=== PATIENT | male | born 1985 | race Caucasian/White ===

== ENCOUNTER 2016-11-07 20:46 | Observation (INO) | payer MEDICAID ==
[~2016-11-07] VITALS: Ht 180.3 cm; Wt 82.0 kg
[2016-11-07 21:42] LABS: ASPARTATE AMINO TRANSFERASE 26 U/L (15-37); BLOOD UREA NITROGEN 7 mg/dL (7-18)
[2016-11-07 21:59] LABS: ACETAMINOPHEN < 2 mcg/mL (10-30)
[2016-11-07] MEDS ORDERED: GABA100C PO (22:05)
[2016-11-07] MEDS ORDERED: HYDR25CA PO (22:05)
[2016-11-07] MEDS ORDERED: OLAN2.5T3 PO (22:05)
[2016-11-07] MEDS ORDERED: BUPR-173 PO (22:05)
[2016-11-07] MEDS ORDERED: DIAZ2TAB PO (22:05)
[2016-11-08 00:24] LABS: DAU SCREEN DISCLAIMER
[2016-11-08] MEDS ORDERED: POTASSIUM CHLORIDE 20 MEQ TAB.ER.PRT PO ONE (00:30)
[2016-11-08] MEDS ORDERED: DOCUSATE 100 MG CAPSULE PO PRN (00:30)
[2016-11-08] MEDS ORDERED: POLYETHYLENE GLYCOL 17 GM PACKET PO PRN (00:30)
[2016-11-08] MEDS ORDERED: BISACODYL 10 MG SUPP PR PRN (00:30)
[2016-11-08 00:50] VITALS: BP 151/70
[2016-11-08 01:08] LABS: HIV 1&2 ANTIBODY SCREEN Nonreactive (Nonreactive); HIV-1 p24 ANTIGEN Nonreactive (Nonreactive)
[2016-11-08 07:51] VITALS: BP 89/58
[2016-11-08 10:49] LABS: HEPATITIS C VIRUS ANTIBODY Nonreactive (Nonreactive)
[2016-11-08] MEDS: hydrOXyzine 50MG TABLET PO SCH ×2 (11:28→20:58)
[2016-11-08] MEDS: BUPROPION SR 150 MG TABLET PO SCH (13:00)
[2016-11-08 19:54] VITALS: BP 100/66
[2016-11-08] MEDS: OLANZAPINE 2.5 MG TABLET PO SCH (20:58)
[2016-11-09 06:24] LABS: BLOOD UREA NITROGEN 15 mg/dL (7-18)
[2016-11-09 07:56] VITALS: BP 132/79
[2016-11-09] MEDS: hydrOXyzine 50MG TABLET PO SCH ×2 (09:00→21:13)
[2016-11-09] MEDS: BUPROPION SR 150 MG TABLET PO SCH (09:18)
[2016-11-09 19:37] VITALS: BP 113/68
[2016-11-09] MEDS: ACETAMINOPHEN 325 MG TABLET PO PRN (21:12)
[2016-11-09] MEDS: OLANZAPINE 2.5 MG TABLET PO SCH (21:13)
[2016-11-10 08:00] VITALS: BP 121/75
[2016-11-10] MEDS: BUPROPION SR 150 MG TABLET PO SCH (09:17)
[2016-11-10] MEDS: GABAPENTIN 100 MG CAPSULE PO SCH ×3 (09:18→22:04)
[2016-11-10] MEDS: DIAZEPAM 2 MG TABLET PO PRN ×3 (09:18→22:42)
[2016-11-10] MEDS: hydrOXyzine 50MG TABLET PO SCH ×2 (09:18→22:04)
[2016-11-10 20:04] VITALS: BP 115/72
[2016-11-10] MEDS: OLANZAPINE 2.5 MG TABLET PO SCH (22:04)
[2016-11-11 08:15] VITALS: BP 109/74
[2016-11-11] MEDS: hydrOXyzine 50MG TABLET PO SCH ×2 (08:54→21:35)
[2016-11-11] MEDS: GABAPENTIN 100 MG CAPSULE PO SCH ×3 (08:55→21:35)
[2016-11-11] MEDS: BUPROPION SR 150 MG TABLET PO SCH (08:55)
[2016-11-11] MEDS: ACETAMINOPHEN 325 MG TABLET PO PRN ×2 (09:58→17:51)
[2016-11-11] MEDS: DIAZEPAM 2 MG TABLET PO PRN ×2 (09:58→17:52)
[2016-11-11 19:32] VITALS: BP 109/72
[2016-11-11] MEDS: OLANZAPINE 2.5 MG TABLET PO SCH (21:35)
[2016-11-11] MEDS: BACITRACIN OINT 500U/GM, 15 GM TP SCH (21:35)
[2016-11-12 07:26] VITALS: BP 99/66
[2016-11-12] MEDS: CEPHALEXIN 500 MG CAPSULE PO SCH ×3 (07:30→20:49)
[2016-11-12] MEDS: BUPROPION SR 150 MG TABLET PO SCH (08:48)
[2016-11-12] MEDS: SULFAMETH./TRIMETHOPRIM DS 800MG/160MG TABLET PO SCH ×2 (08:48→20:49)
[2016-11-12] MEDS: GABAPENTIN 100 MG CAPSULE PO SCH ×3 (08:48→20:49)
[2016-11-12] MEDS: BACITRACIN OINT 500U/GM, 15 GM TP SCH ×3 (08:48→20:50)
[2016-11-12] MEDS: hydrOXyzine 50MG TABLET PO SCH ×2 (08:48→20:50)
[2016-11-12] MEDS ORDERED: SULF1TAB3 PO (08:54)
[2016-11-12] MEDS ORDERED: CEPH-376 PO (08:54)
[2016-11-12] MEDS: DIAZEPAM 2 MG TABLET PO PRN ×3 (09:58→21:01)
[2016-11-12 19:50] VITALS: BP 127/74
[2016-11-12] MEDS: OLANZAPINE 2.5 MG TABLET PO SCH (20:49)
[2016-11-13] MEDS: CEPHALEXIN 500 MG CAPSULE PO SCH ×4 (01:17→19:59)
[2016-11-13 07:30] VITALS: BP 91/48
[2016-11-13] MEDS: hydrOXyzine 50MG TABLET PO SCH ×2 (08:36→20:05)
[2016-11-13] MEDS: BACITRACIN OINT 500U/GM, 15 GM TP SCH ×3 (08:37→20:01)
[2016-11-13] MEDS: SULFAMETH./TRIMETHOPRIM DS 800MG/160MG TABLET PO SCH ×2 (08:37→19:59)
[2016-11-13] MEDS: GABAPENTIN 100 MG CAPSULE PO SCH ×3 (08:37→19:59)
[2016-11-13] MEDS: BUPROPION SR 150 MG TABLET PO SCH (08:37)
[2016-11-13] MEDS: DIAZEPAM 2 MG TABLET PO PRN (15:32)
[2016-11-13 19:38] VITALS: BP 117/74
[2016-11-13] MEDS: OLANZAPINE 2.5 MG TABLET PO SCH (19:59)
== END 2016-11-13 23:35 ==
LOC: ED 23:59 → 3E 11-08 00:01
PROVIDERS: ADMIT Internal Medicine; ATTEND Internal Medicine
DX: R45.851 Suicidal ideations (principal); F11.10 Opioid abuse, uncomplicated; E87.6 Hypokalemia; E87.1 Hypo-osmolality and hyponatremia; E05.90 Thyrotoxicosis, unspecified without thyrotoxic crisis or storm; F17.210 Nicotine dependence, cigarettes, uncomplicated; G89.29 Other chronic pain; L03.211 Cellulitis of face; F15.10 Other stimulant abuse, uncomplicated; E03.9 Hypothyroidism, unspecified; F32.9 Major depressive disorder, single episode, unspecified; F41.9 Anxiety disorder, unspecified; Z98.890 Other specified postprocedural states
CPT/HCPCS: 36415; 80048; 80053; 80074; 80307; 80329; 81001; 83735; 84439; 84443; 85025; 86703; 87086; 87899; 99285; G0378; G0435; G0480

== ENCOUNTER 2018-04-10 02:19 | Emergency (ER) | payer MEDICAID ==
[~2018-04-10] VITALS: Ht 180.3 cm; Wt 62.6 kg
[~2018-04-10 02:19] MED LIST: BUPR-173 PO; CEPH-376 PO; DIAZ2TAB PO; GABA100C PO; HYDR25CA PO; OLAN2.5T3 PO; SULF-169 PO
[2018-04-10] MEDS ORDERED: LORazepam 1MG TABLET ONE ×2 (02:50→02:52)
[2018-04-10] MEDS ORDERED: LORazepam 1MG TABLET PO ONE (03:00)
[2018-04-10 07:41] VITALS: BP 102/75
== END 2018-04-10 07:43 | disposition home or self-care (01) ==
LOC: ED 07:30 → MERGE 07:30 → ED 07:43
DX: F41.1 Generalized anxiety disorder (principal); R06.4 Hyperventilation
CPT/HCPCS: 71045; 93005; 99284

== ENCOUNTER 2018-04-10 09:58 | Emergency (ER) | payer MEDICAID ==
[~2018-04-10] VITALS: Ht 180.3 cm; Wt 62.2 kg
[2018-04-10 10:45] LABS: BASOPHILS # (AUTO) 0.05 x10^3/uL (0-0.1); BASOPHILS % (AUTO) 1 % (0-1); EOSINOPHILS # (AUTO) 0.14 x10^3/uL (0-0.4); EOSINOPHILS % (AUTO) 2 % (1-7); LYMPHOCYTES # (AUTO) 1.85 x10^3/uL (1-3.4); LYMPHOCYTES % (AUTO) 28 % (22-44); MD NO; MEAN CORPUSCULAR HEMOGLOBIN 31.2 pg (27.5-34.5); MEAN CORPUSCULAR HGB CONC 33.9 g/dL (33.2-36.2); MEAN CORPUSCULAR VOLUME 92.1 fL (81-97); MEAN PLATELET VOLUME 8.3 fL (7.4-10.4); MONOCYTES # (AUTO) 0.86 x10^3/uL (0.2-0.8); MONOCYTES % (AUTO) 13 % (2-9); NEUTROPHILS # (AUTO) 3.74 x10^3/uL (1.8-6.8); NEUTROPHILS % (AUTO) 56 % (42-75); PLATELET COUNT 326 x10^3/uL (130-400); RED BLOOD COUNT 4.85 x10^6/uL (4.38-5.82); RED CELL DISTRIBUTION WIDTH 13.3 % (9.4-14.8)
[2018-04-10 10:55] LABS: ALANINE AMINOTRANSFERASE 26 U/L (12-78); ALBUMIN 4.2 g/dL (3.4-5.0); ANION GAP 13 mmol/L (5-15); CALCIUM 8.9 mg/dL (8.5-10.1); CHLORIDE 106 mmol/L (98-107); CREATININE 1.16 mg/dL (0.7-1.3)
[2018-04-10 10:57] LABS: ALKALINE PHOSPHATASE 41 U/L (45-117); BILIRUBIN,TOTAL 1.2 mg/dL (0.2-1.0); SALICYLATE LEVEL < 1.7 mg/dL (2.8-20.0); TOTAL PROTEIN 7.8 g/dL (6.4-8.2)
[2018-04-10 10:59] LABS: ACETAMINOPHEN < 2 mcg/mL (10-30)
[2018-04-10 14:46] LABS: AMPHETAMINE SCREEN, URINE Positive (Negative); BARBITURATE SCREEN, URINE Negative (Negative); BENZODIAZEPINE SCREEN, URINE Negative (Negative); CANNABINOID SCREEN, URINE Negative (Negative); COCAINE SCREEN, URINE Negative (Negative); METHADONE SCREEN, URINE Negative (Negative); OPIATE SCREEN, URINE Positive (Negative)
[2018-04-10 15:03] LABS: CULTURE INDICATED? NO; MICROSCOPIC NOT IND
[2018-04-10] MEDS ORDERED: IBUPROFEN 200 MG TABLET ONE (16:38)
[2018-04-10] MEDS ORDERED: LORazepam 1MG TABLET ONE (16:38)
[2018-04-10] MEDS ORDERED: LORazepam 1MG TABLET PO ONE (17:00)
[2018-04-10] MEDS ORDERED: IBUPROFEN 200 MG TABLET PO ONE (17:00)
[2018-04-10 19:34] VITALS: BP 104/68
== END 2018-04-10 20:21 | disposition home or self-care (01) ==
LOC: ED 10:46
DX: F41.1 Generalized anxiety disorder (principal); F19.10 Other psychoactive substance abuse, uncomplicated; F32.9 Major depressive disorder, single episode, unspecified; Z79.899 Other long term (current) drug therapy
CPT/HCPCS: 36415; 80053; 80307; 80329; 81003; 85025; 99284; G0480

== ENCOUNTER 2018-05-03 05:25 | Emergency (ER) | payer MEDICAID ==
[~2018-05-03] VITALS: Ht 177.8 cm; Wt 64.9 kg
[2018-05-03 05:27] VITALS: BP 111/76
[2018-05-03] MEDS ORDERED: KETOROLAC 30 MG/1 ML IM ONE (06:00)
[2018-05-03] MEDS ORDERED: DIAZEPAM 5 MG TABLET PO ONE (06:00)
[2018-05-03] MEDS ORDERED: KETOROLAC 30 MG/1 ML ONE (06:06)
[2018-05-03] MEDS ORDERED: DIAZEPAM 5 MG TABLET ONE (06:07)
== END 2018-05-03 06:19 | disposition home or self-care (01) ==
LOC: ED 05:38
DX: G89.29 Other chronic pain (principal); M54.6 Pain in thoracic spine
CPT/HCPCS: 96372; 99283; J1885

== ENCOUNTER 2018-06-09 08:13 | Emergency (ER) | payer MEDICAID ==
[~2018-06-09] VITALS: Ht 170.2 cm; Wt 66.4 kg
[2018-06-09] MEDS ORDERED: ONDANSETRON 2MG/ML, 2ML IVPush ONE (09:00)
[2018-06-09] MEDS ORDERED: SODIUM CHLORIDE FLUSH 10ML SYR IVF ONE (09:00)
[2018-06-09 09:03] LABS: BASOPHILS # (AUTO) 0.05 x10^3/uL (0-0.1); BASOPHILS % (AUTO) 1 % (0-1); EOSINOPHILS # (AUTO) 0.22 x10^3/uL (0-0.4); EOSINOPHILS % (AUTO) 2 % (1-7); LYMPHOCYTES # (AUTO) 1.16 x10^3/uL (1-3.4); LYMPHOCYTES % (AUTO) 12 % (22-44); MD NO; MEAN CORPUSCULAR HEMOGLOBIN 31.5 pg (27.5-34.5); MEAN CORPUSCULAR HGB CONC 34.1 g/dL (33.2-36.2); MEAN CORPUSCULAR VOLUME 92.3 fL (81-97); MEAN PLATELET VOLUME 8.2 fL (7.4-10.4); MONOCYTES # (AUTO) 0.77 x10^3/uL (0.2-0.8); MONOCYTES % (AUTO) 8 % (2-9); NEUTROPHILS # (AUTO) 7.68 x10^3/uL (1.8-6.8); NEUTROPHILS % (AUTO) 78 % (42-75); PLATELET COUNT 392 x10^3/uL (130-400); RED BLOOD COUNT 5.09 x10^6/uL (4.38-5.82); RED CELL DISTRIBUTION WIDTH 13.1 % (9.4-14.8)
[2018-06-09 09:08] LABS: ALANINE AMINOTRANSFERASE 24 U/L (12-78); ALBUMIN 3.9 g/dL (3.4-5.0); ANION GAP 7 mmol/L (5-15); CALCIUM 8.5 mg/dL (8.5-10.1); CHLORIDE 107 mmol/L (98-107); CREATININE 1.05 mg/dL (0.7-1.3)
[2018-06-09 09:10] LABS: ALKALINE PHOSPHATASE 55 U/L (45-117); BILIRUBIN,TOTAL 0.7 mg/dL (0.2-1.0); TOTAL PROTEIN 7.8 g/dL (6.4-8.2)
[2018-06-09 10:45] LABS: MICROSCOPIC AUTO
[2018-06-09 10:50] LABS: CULTURE INDICATED? YES
[2018-06-09 12:01] VITALS: BP 102/77
== END 2018-06-09 12:29 | disposition home or self-care (01) ==
LOC: ED 12:23
DX: K29.00 Acute gastritis without bleeding (principal); F15.10 Other stimulant abuse, uncomplicated; F12.10 Cannabis abuse, uncomplicated; F41.1 Generalized anxiety disorder; F32.9 Major depressive disorder, single episode, unspecified; Z72.9 Problem related to lifestyle, unspecified
CPT/HCPCS: 36415; 80053; 80307; 81001; 83690; 85025; 87086; 99283

== ENCOUNTER 2018-06-19 06:32 | Emergency (ER) | payer MEDICAID ==
[~2018-06-19] VITALS: Ht 177.8 cm; Wt 66.4 kg
[2018-06-19] MEDS ORDERED: SUBUTEX (07:18)
[2018-06-19 07:58] LABS: BASOPHILS # (AUTO) 0.05 x10^3/uL (0-0.1); BASOPHILS % (AUTO) 1 % (0-1); EOSINOPHILS # (AUTO) 0.43 x10^3/uL (0-0.4); EOSINOPHILS % (AUTO) 7 % (1-7); LYMPHOCYTES # (AUTO) 1.76 x10^3/uL (1-3.4); LYMPHOCYTES % (AUTO) 29 % (22-44); MD NO; MEAN CORPUSCULAR HGB CONC 33.6 g/dL (33.2-36.2); MEAN CORPUSCULAR VOLUME 92.2 fL (81-97); MEAN PLATELET VOLUME 8.4 fL (7.4-10.4); MONOCYTES # (AUTO) 0.76 x10^3/uL (0.2-0.8); MONOCYTES % (AUTO) 13 % (2-9); NEUTROPHILS # (AUTO) 3.05 x10^3/uL (1.8-6.8); NEUTROPHILS % (AUTO) 51 % (42-75); PLATELET COUNT 344 x10^3/uL (130-400); RED BLOOD COUNT 4.97 x10^6/uL (4.38-5.82); RED CELL DISTRIBUTION WIDTH 13.9 % (9.4-14.8)
[2018-06-19 08:09] LABS: CALCIUM 9.7 mg/dL (8.5-10.1); CHLORIDE 101 mmol/L (98-107)
[2018-06-19 08:17] LABS: ALANINE AMINOTRANSFERASE 56 U/L (12-78); ALKALINE PHOSPHATASE 60 U/L (45-117); ANION GAP 10 mmol/L (5-15); BILIRUBIN,TOTAL 0.4 mg/dL (0.2-1.0); CREATININE 1.03 mg/dL (0.7-1.3); TOTAL PROTEIN 8.4 g/dL (6.4-8.2)
[2018-06-19 08:31] VITALS: BP 116/72
== END 2018-06-19 08:51 | disposition home or self-care (01) ==
LOC: ED 07:10
DX: R60.0 Localized edema (principal); F31.9 Bipolar disorder, unspecified; Z72.9 Problem related to lifestyle, unspecified; Z79.899 Other long term (current) drug therapy
CPT/HCPCS: 36415; 80053; 83880; 85025; 99283

== ENCOUNTER 2018-06-29 09:44 | Emergency (ER) | payer MEDICAID ==
[~2018-06-29] VITALS: Ht 177.8 cm; Wt 62.0 kg
[~2018-06-29 09:44] MED LIST changes: +SUBUTEX
[2018-06-29 12:13] LABS: BASOPHILS # (AUTO) 0.04 x10^3/uL (0-0.1); BASOPHILS % (AUTO) 1 % (0-1); EOSINOPHILS # (AUTO) 0.45 x10^3/uL (0-0.4); EOSINOPHILS % (AUTO) 9 % (1-7); LYMPHOCYTES # (AUTO) 1.55 x10^3/uL (1-3.4); LYMPHOCYTES % (AUTO) 29 % (22-44); MD NO; MEAN CORPUSCULAR HEMOGLOBIN 31.5 pg (27.5-34.5); MEAN CORPUSCULAR VOLUME 92.6 fL (81-97); MEAN PLATELET VOLUME 8.5 fL (7.4-10.4); MONOCYTES # (AUTO) 0.66 x10^3/uL (0.2-0.8); MONOCYTES % (AUTO) 13 % (2-9); NEUTROPHILS # (AUTO) 2.58 x10^3/uL (1.8-6.8); NEUTROPHILS % (AUTO) 49 % (42-75); PLATELET COUNT 342 x10^3/uL (130-400); RED BLOOD COUNT 4.66 x10^6/uL (4.38-5.82); RED CELL DISTRIBUTION WIDTH 13.5 % (9.4-14.8)
[2018-06-29 12:23] LABS: ALBUMIN 3.6 g/dL (3.4-5.0); ANION GAP 9 mmol/L (5-15); CALCIUM 8.3 mg/dL (8.5-10.1); CHLORIDE 108 mmol/L (98-107)
[2018-06-29 12:25] LABS: SALICYLATE LEVEL < 1.7 mg/dL (2.8-20.0)
[2018-06-29 12:34] LABS: ALANINE AMINOTRANSFERASE 22 U/L (12-78); ALKALINE PHOSPHATASE 48 U/L (45-117); BILIRUBIN,TOTAL 0.6 mg/dL (0.2-1.0); CREATININE 1.06 mg/dL (0.7-1.3); TOTAL PROTEIN 7.1 g/dL (6.4-8.2)
[2018-06-29 12:35] LABS: ACETAMINOPHEN < 2 mcg/mL (10-30)
[2018-06-29 13:58] VITALS: BP 105/75
== END 2018-06-29 15:48 | disposition home or self-care (01) ==
LOC: ED 11:04
DX: T42.4X1A Poisoning by benzodiazepines, accidental (unintentional), initial encounter (principal); G92 Toxic encephalopathy; F17.200 Nicotine dependence, unspecified, uncomplicated; F41.1 Generalized anxiety disorder; F31.9 Bipolar disorder, unspecified; R51 Headache; Y92.89 Other specified places as the place of occurrence of the external cause
CPT/HCPCS: 36415; 70450; 71045; 80053; 80307; 80329; 82140; 84443; 85025; 93005; 99284; G0480

== ENCOUNTER 2018-10-16 14:11 | Emergency (ER) | payer OTHER, MEDICAID ==
[~2018-10-16] VITALS: Ht 180.3 cm; Wt 73.0 kg
[2018-10-16 14:22] VITALS: BP 113/67
[2018-10-16] MEDS ORDERED: DIPH,PERTUSS(ACELL),TET VAC/PF 0.5 ML IM-VACC ONE ×2 (15:29→15:30)
== END 2018-10-16 16:09 | disposition home or self-care (01) ==
LOC: ED 14:22
DX: S52.124A Nondisplaced fracture of head of right radius, initial encounter for closed fracture (principal); S61.431A Puncture wound without foreign body of right hand, initial encounter; X58.XXXA Exposure to other specified factors, initial encounter; Y93.89 Activity, other specified; Y92.410 Unspecified street and highway as the place of occurrence of the external cause; Y99.8 Other external cause status
CPT/HCPCS: 90471; 90715

== ENCOUNTER 2019-06-13 21:27 | Emergency (ER) | payer MEDICAID ==
[~2019-06-13] VITALS: Ht 180.3 cm; Wt 78.0 kg
[2019-06-13 21:29] VITALS: BP 137/86
--- NOTE | 2019-06-13 22:44 | NUR ---
PT REMOVED ALL MONITORING EQUIPMENT AND EXITED THE HOSPITAL DOOR TO THE STREET. DR BONDS AND [employer] TEACHER NOTIFIED OF PT ELOPEMENT.
== END 2019-06-13 22:47 | disposition left against medical advice (07) ==
LOC: ED 22:41
DX: F15.10 Other stimulant abuse, uncomplicated (principal); F11.10 Opioid abuse, uncomplicated
CPT/HCPCS: 93005; 99283